=== PATIENT | female | born 1975 | race Caucasian/White ===

== ENCOUNTER 2019-06-29 06:24 | Day surgery (SDC) | payer OTHER ==
[~2019-06-29] VITALS: Ht 157.5 cm; Wt 59.0 kg
[2019-06-29] MEDS ORDERED: fentaNYL 0.05 MG/ML VIAL ONE (07:21)
[2019-06-29] MEDS ORDERED: LIDOCAINE 2% 100 MG/5 ML UJET TP ONE (07:21)
[2019-06-29] MEDS ORDERED: fentaNYL 0.05 MG/ML VIAL IVP ONE (07:50)
[2019-06-29] MEDS ORDERED: LIDOCAINE JELLY 2% 30 ML TUBE TP ONE (08:30)
== END 2019-06-29 09:00 | disposition home or self-care (01) ==
LOC: MMU 06:24 → MDS 06:24
PROVIDERS: ATTEND Internal Medicine Gastroenterology
DX: Z12.11 Encounter for screening for malignant neoplasm of colon (principal); Z80.0 Family history of malignant neoplasm of digestive organs
CPT/HCPCS: 45378; 81025; J3010